=== PATIENT | male | born 1990 | race Caucasian/White ===

== ENCOUNTER → 2020-01-12 09:27 | Outpatient (CLI) | payer BC, SELFPAY ==
[2020-01-12 13:10] LABS: Thyroid Stim Hormone (TSH) 2.25 uIU/mL (0.358-3.74)
[2020-01-12 13:25] LABS: Cholesterol 215 mg/dL (200); Glucose 85 mg/dL (74-106); High Density Lipoprotein 50 mg/dL; Triglycerides 77 mg/dL; Very Low Density Lipoprotein 15 mg/dL (5-40)
== END ==
PROVIDERS: PCP Family Medicine; Referring Provider Family Medicine; Visit Provider Family Medicine
DX: Z00.00 Encounter for general adult medical examination without abnormal findings (principal); R42 Dizziness and giddiness
CPT/HCPCS: 36415; 80061; 82947; 84439; 84443

== ENCOUNTER 2021-09-03 12:33 | Outpatient (CLI) | payer BC, SELFPAY ==
--- NOTE | 2021-09-03 12:38 | RAD_ITS ---
STUDY: CHEST SERIES--PA AND LATERAL VIEWS OF 1241 HOURS ON 09/03/2021 REASON FOR EXAM: 30-year-old male with dyspnea. TECHNIQUE: A routine chest x-ray series was performed per protocol. COMPARISON: None. FINDINGS: The lungs are clear and expanded. There is no demonstrated pleural abnormality. No hyperinflation. Normal size heart. Normal mediastinum and antonio. Normal visualized pulmonary arteries. Normal visualized aortic arch and descending thoracic aorta. Normal visualized thoracic spine. Normal visualized ribs, clavicles, and shoulders. There is no demonstrated abnormality of the visualized soft tissue structures of the upper abdomen. And external sensors are noted overlying the mid chest. RAD/Chest PA and Lateral IMPRESSION: 1. No active cardiopulmonary disease. 2. No hyperinflation. Electronically Signed: Jonathan Buck MD at 17:34 EDT ,
[2021-09-03 15:48] LABS: Hematocrit 43.2 % (40-54); Hemoglobin 14.4 g/dL (13.0-16.5); Mean Corp Hgb Conc 33.3 g/dL (32-36); Mean Corpuscular Hgb 30.4 pg (27.0-32.0); Mean Corpuscular Volume 91.1 fL (80-94); Mean Platelet Vol. 10.6 fl (6.2-12.0); Platelet Count 271 K/mm3 (150-450); RBC Distribution Width CV 12.2 % (11.6-14.6); RBC Distribution Width SD 40.7 fl (35.1-43.9); Red Blood Count 4.74 M/mm3 (4.6-6.2); White Blood Count 6.2 K/mm3 (4.4-11.0)
[2021-09-03 16:11] LABS: Vitamin B12 1021 pg/mL (211-911); Vitamin D,25 Hydroxy 17.7 ng/mL
[2021-09-03 16:15] LABS: ALB/GLOB Ratio 1.2 RATIO (0.9-2.4); AST(SGOT) 18 U/L (15-37); Alanine Aminotransfer ALT/SGPT 28 U/L (16-61); Albumin, Serum 4.4 g/dL (3.2-5.0); Alkaline Phosphatase 37 U/L (45-117); Anion Gap 5 (5-15); BUN 13 mg/dL (7-18); BUN/Creat Ratio 13.1 RATIO (10-20); Calcium,Total 9.4 mg/dL (8.5-10.1); Chloride 102 mmol/L (98-107); Creatinine, Serum 0.99 mg/dL (0.70-1.30); EST Glomerular Filtration Rate 92 mL/min (>60); Est Glom Filt Rate - Afr Amer 112 mL/min (>60); Globulin 3.8 g/dL (2.2-4.2); Glucose 83 mg/dL (74-106); Iron 76 ug/dL (65-175); Potassium 3.7 mmol/L (3.5-5.1); Protein, Total 8.2 g/dL (6.4-8.2); Sodium Level 137 mmol/L (136-145); Thyroid Stim Hormone (TSH) 3.44 uIU/mL (0.358-3.74)
[2021-09-03 16:16] LABS: Erythrocyte Sedimentation Rate 16 mm/hr (0-20)
== END 2021-09-03 23:59 | disposition home or self-care (01) ==
LOC: MTLAB 12:35
PROVIDERS: PCP Family Medicine; Referring Provider Family Medicine; Visit Provider Family Medicine
DX: R53.83 Other fatigue (principal); R06.00 Dyspnea, unspecified
CPT/HCPCS: 36415; 71046; 80053; 82306; 82607; 83540; 84403; 84443; 85027; 85652

== ENCOUNTER 2021-09-19 16:56 | Outpatient (CLI) | payer BC, SELFPAY ==
--- NOTE | 2021-09-19 17:04 | MRI_ITS ---
EXAM: MR HEAD WITHOUT INTRAVENOUS CONTRAST CLINICAL INDICATION: HEADACHES -- IAC''s TECHNIQUE: Multiplanar and multisequence MR images of the brain were obtained without intravenous contrast. This report was created using [employer] report generation technology. COMPARISON: None. FINDINGS: BRAIN AND EXTRA-AXIAL SPACES: Normal and symmetrical bilateral trigeminal nerves and the Meckel''s cave cisterns. Normal ventricles and cisterns. No focal signal abnormalities throughout the brain parenchyma. No intra- or extra-axial hemorrhage. No evidence of acute infarct. No intracranial mass or mass effect. There is preservation of the lopez/white matter interface. Posterior fossa structures are normal. SELLA: Unremarkable. Normal sella turcica, pituitary gland, infundibular stalk, optic chiasm and hypothalamus. AUDITORY SYSTEM: Normal and symmetrical bilateral 7th and 8th cranial nerves. Normal and symmetrical bilateral membranous labyrinths. SINUSES: Unremarkable as visualized. Clear. MASTOID AIR CELLS: Normal bilateral temporal mastoid bones. ORBITS: Unremarkable as visualized. Both globes, extraocular muscles, optic nerves and retrobulbar fat appear unremarkable. VASCULATURE: Unremarkable as visualized. Normal flow voids in the major intracranial circulation. MRI/Brain without Contrast IMPRESSION: Normal MRI brain without contrast including the bilateral IACs and membranous labyrinths. Electronically Signed: Miah Wilson MD at 9:54 EDT ,
== END 2021-09-19 23:59 | disposition home or self-care (01) ==
PROVIDERS: PCP Family Medicine; Referring Provider Family Medicine; Visit Provider Family Medicine
DX: R51.9 Headache, unspecified (principal)
CPT/HCPCS: 70551